=== PATIENT | female | born 1975 | race Native Hawaiian/Other Pacific Islander ===

== ENCOUNTER 2017-12-14 21:41 | Emergency (ER) | payer BC ==
[~2017-12-14] VITALS: Ht 162.6 cm; Wt 67.4 kg
[2017-12-14 22:10] VITALS: Ht 162.6 cm; Wt 67.4 kg
[2017-12-15 00:38] VITALS: BP 116/79
== END 2017-12-15 00:38 | disposition home or self-care (01) ==
LOC: ED 21:41
DX: M62.830 Muscle spasm of back (principal); M54.12 Radiculopathy, cervical region
CPT/HCPCS: J1885